=== PATIENT | female | born 1990 | race Caucasian/White ===

== ENCOUNTER 2016-11-01 13:50 | Emergency (ER) | payer BC, OTHER ==
[~2016-11-01] VITALS: Ht 162.6 cm; Wt 80.3 kg
[~2016-11-01 13:50] MED LIST: CEPH-506 PO; CLOT15CR4 TP; DCS100C PO; DOCU100C37 PO; FAMO-106 PO; FERR325C PO; FRS325T PO; HYDR-3812 PO; HYDR-757 PO; IBP600T1 PO; IBUP-1773 PO; LNS30CCR PO; ONDN4T PO; OXYC-12 PO; PNV1CAPS13 PO; PREN-37 PO; PREN1TAB14 PO; PREN1TAB39 PO
--- OUTSIDE RECORDS SUMMARY | 2016-11-01 13:56 | XMS REPORT | Continuity of Care Document ---
Author Author [facility] Organization [facility] Address Unknown Phone Unavailable Care Team Providers Care Finisher Cold [place] Name Role Phone NICK HOOKS MD PCP Insurance Providers Payer Name Policy Number Subscriber Name Relationship DHARA [id number] Clara Fall Sandro Self / Same As Patient Advance Directives Directive Response Recorded Date/Time Advance Directives No 09/30/16 6:24am Health Care Power of Reference Data Expert No 09/30/16 6:24am Organ Donor No 09/30/16 6:24am Resuscitation Status Full Code 09/30/16 6:24am Problems Active Problems Medical Problem Onset Date Status Tinea corporis Unknown Acute Medications Current Home Medications Medication Dose Units Route Directions Days/Qty Instructions Start Date Ibuprofen 600 Mg 600 Mg Oral Every 6 Hours 30 10/01/16 Hydrocodone/Acetaminophen 1 Each 1-2 Tab Oral Every 4HRS as needed for Pain 30 10/01/16 Docusate Sodium 100 Mg 100 Mg Oral Twice A Day 60 10/01/16 Past Home Medications Medication Directions Ordered Status Vits W-Ca,Fe,Fa(<1MG) 1 Each Tablet, 1 Each Oral Daily 04/13/12 Discontinued Ibuprofen 600 Mg Tab, 600 Mg Oral Give Every 6 Hr On Schedule 06/15/12 Discontinued Oxycodone Hcl/Acetaminophen 1 Each Tablet, 1 - 2 Each Oral Q4-6HRS as needed 06/15/12 Discontinued Ferrous Sulfate 325 ( 65 )Mg Capsule.sa, 325 ( Oral Three Times A Day Discontinued Lansoprazole 30 Mg Cap, 1 Cap Oral Daily 01/24/13 Discontinued Vits W-Ca,Fe,Fa(<1MG) 1 Each Tablet, 1 Each Oral Daily 01/24/13 Discontinued Vits W-Ca,Fe,Fa(<1MG) 1 Each Tablet, 1 Each Oral Daily 01/24/13 Discontinued Ondansetron Hcl 4 Mg Tab, 1 Tab Oral Every 4HRS 01/24/13 Discontinued Famotidine 20 Mg Tablet, Mg Oral 08/08/13 Discontinued Pnv Comb.no58/Iron Bisgly/Fa 1 Each Capsule, 1 Each Oral Daily 09/09/13 Discontinued Docusate Sodium 100 Mg Cap, 100 Mg Oral Twice A Day as needed for Constipation 09/15/13 Discontinued Ferrous Sulfate 325 Mg Tab, 325 Mg Oral Twice A Day With Meals 09/15/13 Discontinued Ibuprofen 600 Mg Tab, 600 Mg Oral Every 6 Hours as needed for Pain 09/15/13 Discontinued Hydrocodone Bit/Acetaminophen 1 Each Tablet, 1 Ea Oral Every 6 Hours as needed for Mild Pain 09/15/13 Discontinued Vit/Iron Fumarate/Fa 1 Each Tablet, 1 Each Oral Daily 06/02/16 Discontinued Clotrimazole/Betamethasone Dip 15 Gm Cream..g., 1 Gm Topical Twice A Day 01/12 Discontinued Cephalexin 250 Mg Capsule, 250 Mg Oral Four Times Daily 08/20/16 Discontinued Social History Social History Problem Response Recorded Date/Time Alcohol Use Occasionally Uses 09/13/2013 6:32am Recreational Drug Use No 09/13/2013 6:32am Recent Foreign Travel No 09/13/2013 6:32am Recent Infectious Disease Exposure No 09/13/2013 6:32am Hospitalization with Isolation Denies 09/15/2013 1:45pm Sexually Transmitted Disease No 09/30/2016 6:24am HIV/AIDS No 09/30/2016 6:24am Smoking Status Never a Smoker 09/30/2016 6:25am Recent Hopitalizations No 09/30/2016 6:24am Sexually Transmitted Disease No 09/30/2016 6:24am Hospitalization with Isolation Denies 09/15/2013 1:45pm Query Response Start Date Stop Date Smoking Status Never a Smoker Hospital Discharge Instructions Patient Instructions Physician Instructions New, Converted or Re-Newed RX: RX on Chart (and transmitted to pharmacy) Additional Follow Up: Yes Orders/Referrals 7-[address] Mars [address] Mars Activity: Activity as Tolerated Driving Instructions: No Driving for 24 Hours (or while on narcotic pain med ications) NO SMOKING: NO SMOKING Nothing Inside Vagina: No Douching, No [place], No Tampons Other Activity no lifting > 10lb, no strenuous activity until cleared by Dr. Mars Discharge Diet: No Restrictions Symptoms to Report to DrMana: Bleeding Excessive, Pain Increased, Fever Over 101 Degrees F, Pain/Pressure in Chest, Vaginal Bleeding Increase, Dizziness/Fainting, Nausea/Vomiting, Shortness of Breath For Any Problems or Questions: Contact Your Physician Infection Signs and Symptoms: Increased Redness, Foul Odor of Wound, Increased Drainage Operative Area Clean and Dry: Keep Incision Clean/Dry Stitches/[place]/Dermabond: Care of Stitches Bathing Instructions: Shower Plan of Care Discharge Date 10/02/16 1:15pm Disposition 01 HOME, SELF-CARE Instructions/Education Provided SECTION DISCHARGE [facility] Nonbreastfeeding Woman Forms Provided PDI Prescriptions See Medication Section Referrals NAMRATA MARS DO (Unspecified) - Address: [address] [place] [address] [place] [address] [phone] Reason(s) for Referral: CALL FOR AN APPOINTMENT TO SEE DR. MARS IN 7-10 DAYS FOR INCISION CHECK. CALL BEFORE IF HAVING ANY PROBLEMS OR QUESTIONS. SCHEDULE A [address] MARS. Care Plan and Goals See Discharge Instructions Section Functional Status Query Response Date Recorded Patient Orientation Person Place Time Situation Normal For Age October 02, 2016 1:54pm Allergies, Adverse Reactions, Alerts No known allergies. Immunizations Name Given Type DTaP-Tetanus, Dipth, Pertuss P/F (Boostrix) 10/01/16 Administered FLU TRIvalent 5 years - Adult 10/01/16 Administered Vital Signs Acute Vital Signs Vital Response Date/Time Temperature (Fahrenheit) 97.9 degrees F (97.6 - 99.5) 10/02/2016 1:15pm Temperature (Calculated Celsius) 36.35750 degrees C (36.4 - 37.5) 10/02/2016 9:00am Temperature Source Tympanic 10/02/2016 1:15pm Pulse Rate (adult) 106 bpm (60 - 90) 10/02/2016 1:15pm Respiratory Rate 18 bpm (12 - 24) 10/02/2016 1:15pm O2 Sat by Pulse Oximetry 98 % (88 - 100) 10/02/2016 1:15pm Blood Pressure 120/79 mm Hg 10/02/2016 1:15pm Blood Pressure Mean 93 mm Hg 10/02/2016 9:00am Pain Numeric Pain Scale 2 10/02/2016 1:15pm Height (Feet) 5 feet 09/30/2016 6:00am Height (Inches) 4.00 inches 09/30/2016 6:00am Height (Calculated Centimeters) 162.356195 cm 09/30/2016 6:00am Weight (Pounds) 202 pounds 09/30/2016 6:00am Weight (Ounces) 0.4 oz 09/30/2016 6:00am Weight (Calculated Grams) 28389.00 gm 09/30/2016 6:00am Weight (Calculated Kilograms) 91.907662 kilograms 09/30/2016 6:00am Calculated BMI 34.7 09/30/2016 6:00am Results Laboratory Results Test Name Result Units Flags Reference Collection Date/Time Result Date/ Time Comments White Blood Count 13.0 10^3/uL H 4.3-11.0 10/01/2016 6:58am 10/01/2016 7: 29am Red Blood Count 3.69 10^6/uL L 4.35-5.85 10/01/2016 6:58am 10/01/2016 7: 29am Hemoglobin 10.6 G/DL L 11.5-16.0 10/01/2016 6:58am 10/01/2016 7:29am Hematocrit 32 % L 35-52 10/01/2016 6:58am 10/01/2016 7:29am Mean Corpuscular Volume 88 FL 80-99 10/01/2016 6:58am 10/01/2016 7: 29am Mean Corpuscular Hemoglobin 29 PG 25-34 10/01/2016 6:58am 10/01/2016 7: 29am Mean Corpuscular Hemoglobin Concent 33 G/DL 32-36 10/01/2016 6:58am 12/2015 7:29am Red Cell Distribution Width 12.9 % 10.0-14.5 10/01/2016 6:58am 2015 7:29am Platelet Count 211 10^3/uL 130-400 10/01/2016 6:58am 10/01/2016 7:29am Mean Platelet Volume 10.4 FL 7.4-10.4 10/01/2016 6:58am 10/01/2016 7: 29am Neutrophils (%) (Auto) 80 % H 42-75 10/01/2016 6:58am 10/01/2016 7:29am Lymphocytes (%) (Auto) 10 % L 12-44 10/01/2016 6:58am 10/01/2016 7:29am Monocytes (%) (Auto) 8 % 0-12 10/01/2016 6:58am 10/01/2016 7:29am Eosinophils (%) (Auto) 2 % 0-10 10/01/2016 6:58am 10/01/2016 7:29am Basophils (%) (Auto) 0 % 0-10 10/01/2016 6:58am 10/01/2016 7:29am Neutrophils # (Auto) 10.4 X 10^3 H 1.8-7.8 10/01/2016 6:58am 10/01/2016 7 :29am Lymphocytes # (Auto) 1.3 X 10^3 1.0-4.0 10/01/2016 6:58am 10/01/2016 7: 29am Monocytes # (Auto) 1.0 X 10^3 0.0-1.0 10/01/2016 6:58am 10/01/2016 7: 29am Eosinophils # (Auto) 0.3 10^3/uL 0.0-0.3 10/01/2016 6:58am 10/01/2016 7 :29am Basophils # (Auto) 0.0 10^3/uL 0.0-0.1 10/01/2016 6:58am 10/01/2016 7: 29am Urine Color YELLOW 09/30/2016 6:20am 09/30/2016 6:50am Urine Clarity CLEAR 09/30/2016 6:20am 09/30/2016 6:50am Urine pH 6 5-9 09/30/2016 6:20am 09/30/2016 6:50am Urine Specific [place] 1.020 1.016-1.022 09/30/2016 6:20am 2015 6:50am Urine Protein NEGATIVE NEGATIVE 09/30/2016 6:20am 09/30/2016 6:50am Urine Glucose (UA) NEGATIVE NEGATIVE 09/30/2016 6:20am 09/30/2016 6: 50am Urine RBC (Auto) NEGATIVE NEGATIVE 09/30/2016 6:20am 09/30/2016 6: 50am Urine Ketones NEGATIVE NEGATIVE 09/30/2016 6:20am 09/30/2016 6:50am Urine Nitrite NEGATIVE NEGATIVE 09/30/2016 6:20am 09/30/2016 6:50am Urine Bilirubin NEGATIVE NEGATIVE 09/30/2016 6:20am 09/30/2016 6: 50am Urine Urobilinogen NORMAL MG/DL NORMAL 09/30/2016 6:20am 09/30/2016 6: 50am Urine Leukocyte Esterase NEGATIVE NEGATIVE 09/30/2016 6:20am 2015 6:50am Urine RBC NONE /HPF 09/30/2016 6:20am 09/30/2016 6:50am Urine WBC NONE /HPF 09/30/2016 6:20am 09/30/2016 6:50am Urine Bacteria FEW /HPF * 09/30/2016 6:20am 09/30/2016 6:50am Urine Squamous Epithelial Cells 25-50 /HPF * 09/30/2016 6:20am 2015 6:50am Urine Crystals NONE /LPF 09/30/2016 6:20am 09/30/2016 6:50am Urine Casts NONE /LPF 09/30/2016 6:20am 09/30/2016 6:50am Urine Mucus NEGATIVE /LPF 09/30/2016 6:20am 09/30/2016 6:50am Urine Culture Indicated NO 09/30/2016 6:20am 09/30/2016 6:50am Pending Microbiology Results Procedure Source Collection Date/Time Procedures Procedure Status Date Provider(s) section Completed 09/30/16 NAMRATA MARS DO Tracing only of electrocardiogram Active 09/30/16 PHIL MURO CRNA Encounters Encounter Location Arrival/Admit Date Discharge/Depart Date Attending Provider Discharged Inpatient [facility] 09/30/16 6:04am 1:15pm NAMRATA MARS DO Departed Clinic [facility] 11/28/16 10:43am 09/26/16 11: 14am NAMRATA MARS DO Departed Clinic [facility] 09/02/16 11:54am 09/02/16 12: 41pm HO RIVERA DO
[2016-11-01] MEDS ORDERED: NORG1TAB79 PO (14:47)
--- NOTE | 2016-11-01 14:56 | ED GU-Female ---
General Chief Complaint: -Female Stated Complaint: VAG BLEEDING Nursing Triage Note: PT CO OF INCREASED VAGINAL BLEEDING, PT HAS ON 09/30/16. STATES STARTED BC 11 DAYS AGO, STATES BLEEDING HAS NOT STOPPED SINCE DELIVERY. SENT TO ED BY DR MARS'S OFFICE Nursing Sepsis Screen: No Definite Risk Source: patient Exam Limitations: no limitations History of Present Illness Time seen by provider: 14:56 Initial Comments 25-year-old female patient presents to the emergency department complains of increased vaginal bleeding. Patient states she underwent section on . Also states she started control 11 days ago. Reports bleeding after the improved to just spotting. Increased bleeding last 1-2 days. States she has used 4 pads today. Patient states she was sent to the ED by Dr. Mars's office. Timing/Duration: other (1-2 days worse) Severity/Quality: cramping Location: suprapubic Radiation: none Activities at Onset: none Prior Genitourinary Problems: none Sexual [place] History: not active Modifying Factors: Worsens With Other (denies modifying factors.) Allergies and Home Medications Allergies Coded Allergies: No Known Drug Allergies (Unverified , 09/26/16) Home Medications Norgestrel-Ethinyl Estradiol 1 Each Tablet 1 EACH PO DAILY (Reported) Constitutional: No chills, No diaphoresis, No dizziness, No fever, No malaise Respiratory: no symptoms reported Cardiovascular: no symptoms reported Gastrointestinal: see HPI abdominal pain (suprapubic cramping)No constipation , No diarrhea, No loss of appetite, No nausea, No vomiting Genitourinary: see HPIdenies burning, discharge (vaginal bleeding. Denies yellow or green vaginal discharge.)denies dysuria, denies frequency, denies flank pain, pain (suprapubic abdominal cramping) : No Musculoskeletal: no symptoms reported Skin: no symptoms reported Psychiatric/Neurological: No Symptoms Reported Hematologic/Lymphatic: No Symptoms Reported All Other Systemes Reviewed Negative Unless Noted: Yes (Negative excepted noted.) Past Lnnnzbt-Nsdizk-Prpyyj Hx Patient Social History Alcohol Use: Denies Use Recreational Drug Use: No Smoking Status: Never a Smoker Recent Foreign Travel: No Contact w/Someone Who Travel: No Recent Infectious Disease Expo: No Recent Hopitalizations: No Physical Abuse Screen: No Sexual Abuse: No Immunizations Up To Date Tetanus Booster (TDap): Less than 5yrs PED Vaccines UTD: No Date of Influenza Vaccine: Sep 14, 2013 Seasonal Allergies Seasonal Allergies: No Surgeries HX Surgeries: Yes Surgeries: Section Respiratory Hx Respiratory Disorders: No Cardiovascular Hx Cardiac Disorders: No Neurological Hx Neurological Disorders: No Reproductive System : No (DELIVERY 09/30/16) Hx Reproductive Disorders: No Sexually Transmitted Disease: No HIV/AIDS: No Female Reproductive Disorders: Denies Genitourinary Hx Genitourinary Disorders: Yes Genitourinary Disorders: UTI-Chronic Gastrointestinal Hx Gastrointestinal Disorders: Yes (DURING ) Gastrointestinal Disorders: Gastroesophageal Reflux Musculoskeletal Hx Musculoskeletal Disorders: No Endocrine Hx Endocrine Disorders: No HEENT HX ENT Disorders: No Cancer Hx Cancer: No Psychosocial Hx Psychiatric Problems: No Integumentary HX Skin/Integumentary Disorder: No Blood Transfusions Hx Blood Disorders: No Adverse Reaction to a Blood Tr: No (N/A) Reviewed Nursing Assessment Reviewed/Agree w Nursing PMH: Yes Family Medical History Significant Family History: Heart Disease Family Medial History: Family history: Asthma 09 BROTHER No Family History of: Abdominal aortic aneurysm Elcho's disease Alcoholism Aphasia Cancer Cancer of colon Cataract Chest pain Congenital heart disease Congestive heart failure Cystic fibrosis Dementia Dysphagia Family history: Allergy Family history: Arthritis Family history: Breast disease Family history: Cardiovascular disease Family history: Coronary thrombosis Family history: Diabetes mellitus Family history: Gastrointestinal disease Family history: Glaucoma Family history: Hypertension Family history: Osteoporosis Family history: Thyroid disorder Headache Hearing loss Heart disease Hereditary disease History of - anemia History of - disorder History of - respiratory disease History of drug abuse Human immunodeficiency virus (HIV) seropositivity Hypercholesterolemia Infertile Kidney disease Malignant neoplasm of lung Myocardial infarction Parkinson's disease Prostate cancer Psychotic disorder Seizure disorder Stroke Tuberculosis Visual impairment Physical Exam Vital Signs Capillary Refill : Less Than 3 Seconds General Appearance: WD/WN no apparent distress HEENT: PERRL/EOMI pharynx normal Neck: supple normal inspection Cardiovascular: normal peripheral pulses regular rate, rhythm no edema no murmur Respiratory: lungs clear normal breath sounds no respiratory distress Gastrointestinal: normal bowel sounds non tender (unable to reproduce suprapubic tenderness) softNo distended Back: normal inspection no CVA tenderness Extremities: no pedal edema normal capillary refill Neurologic/Psychiatric: alert normal mood/affect oriented x 3 Skin: normal color warm/dry Progress/Results/Core Measures Results/Orders Lab Results My Orders Vital Signs/I&O Blood Pressure Mean: 88 Departure Communication Progress Notes All laboratory findings discussed with the patient. Patient instructed to follow-up as an outpatient with Dr. Mars for recheck and possible need for outpatient ultrasound.. She is to call her office for appointment time. All return precautions were discussed with the patient as described in the discharge instructions of this report. Patient voices understanding and agrees with the treatment plan. Patient case discussed with Gamaliel Aaron MD. He agrees with the plan of care. Impression Impression: Primary Impression: Menorrhagia Disposition: 01 HOME, SELF-CARE Condition: Improved Departure-Patient Inst. Decision time for Depature: 16:07 Referrals: NICK HOOKS MD (PCP/Family) Primary Care Physician NAMRATA MARS DO Patient Instructions: IRREGULAR VAGINAL BLEEDING Add. Discharge Instructions: All discharge instructions reviewed with patient and/or family. Voiced understanding. Take usual medications as prescribed. Tylenol and motrin for pain if needed. Follow-up with Dr. Mars for recheck and further evaluation. Return to the emergency department for worsened pain, fever, vomiting, diarrhea , vaginal bleeding with greater than 2 pads per hour for 2 hours, or any other concerns. PEEWEE ROMERO Nov 01, 2016 14:56 Lymphocytes # (Auto) 1.5 1.0-4.0 X 10^3 Lymphocytes (%) (Auto) 19 12-44 % Mean Corpuscular Hemoglobin 28 25-34 PG Mean Corpuscular Hemoglobin Concent 33 32-36 G/DL Mean Corpuscular Volume 85 80-99 FL Mean Platelet Volume 10.1 7.4-10.4 FL Monocytes # (Auto) 0.5 0.0-1.0 X 10^3 Monocytes (%) (Auto) 6 0-12 % Neutrophils # (Auto) 5.5 1.8-7.8 X 10^3 Neutrophils (%) (Auto) 71 42-75 % Platelet Count 294 130-400 10^3/uL Potassium Level 3.8 3.6-5.0 MMOL/L Red Blood Count 4.38 4.35-5.85 10^6/uL Red Cell Distribution Width 13.0 10.0-14.5 % Sodium Level 140 135-145 MMOL/L TSH [place] Testing 1.60 0.35-4.94 UIU/ML Total Bilirubin 0.3 0.1-1.0 MG/DL Total Protein 7.1 6.4-8.2 G/DL White Blood Count 7.7 4.3-11.0 10^3/uL Urine Bacteria FEW H /HPF Urine Bilirubin NEGATIVE NEGATIVE Urine Casts NONE /LPF Urine Clarity SLIGHTLY CLOUDY Urine Color YELLOW Urine Crystals NONE /LPF Urine Culture Indicated NO Urine Glucose (UA) NEGATIVE NEGATIVE Urine Ketones NEGATIVE NEGATIVE Urine Leukocyte Esterase 1+ H NEGATIVE Urine Mucus MODERATE H /LPF Urine Nitrite NEGATIVE NEGATIVE Urine Protein 2+ H NEGATIVE Urine RBC TNTC H /HPF Urine RBC (Auto) 5+ H NEGATIVE Urine Specific [place] 1.015 L 1.016-1.022 Urine Urobilinogen 1 NORMAL MG/DL Urine WBC 0-2 /HPF Urine pH 6.5 5-9 My Orders Orders-PEEWEE ROMERO Cbc With Automated Diff (11/01/16 14:56) Comprehensive Metabolic Panel (11/01/16 14:56) Thyroid Analyzer (11/01/16 14:56) Ua Culture If Indicated (11/01/16 14:56) Urine Bedside (11/01/16 14:56) Acetaminophen Tablet (Tylenol Tablet) (11/01/16 15:26) Vital Signs/I&O Vital Sign - Last 12Hours 11/01/16 14:25 Temp 98.1 Pulse 85 Resp 18 B/P 122/71 Pulse Ox 99 Blood Pressure Mean: 88 Departure Impression Impression: Primary Impression: Menorrhagia Disposition: 01 HOME, SELF-CARE Condition: Improved Departure-Patient Inst. Decision time for Depature: 16:07 Referrals: NICK HOOKS MD (PCP/Family) Primary Care Physician NAMRATA MARS DO Patient Instructions: IRREGULAR VAGINAL BLEEDING Add. Discharge Instructions: All discharge instructions reviewed with patient and/or family. Voiced understanding. Take usual medications as prescribed. Tylenol and motrin for pain if needed. Follow-up with Dr. Mars for recheck and further evaluation. Return to the emergency department for worsened pain, fever, vomiting, diarrhea , vaginal bleeding with greater than 2 pads per hour for 2 hours, or any other concerns. PEEWEE ROMERO Nov 01, 2016 14:56
[2016-11-01 15:15] LABS: BASOPHILS % (AUTO) 0 % (0-10); EOSINOPHILS # (AUTO) 0.3 10^3/uL (0.0-0.3); EOSINOPHILS % (AUTO) 4 % (0-10); LYMPHOCYTES # (AUTO) 1.5 X 10^3 (1.0-4.0); LYMPHOCYTES % (AUTO) 19 % (12-44); MEAN CORPUSCULAR HEMOGLOBIN 28 PG (25-34); MEAN CORPUSCULAR HGB CONC 33 G/DL (32-36); MEAN CORPUSCULAR VOLUME 85 FL (80-99); MEAN PLATELET VOLUME 10.1 FL (7.4-10.4); MONOCYTES # (AUTO) 0.5 X 10^3 (0.0-1.0); MONOCYTES % (AUTO) 6 % (0-12); NEUTROPHILS # (AUTO) 5.5 X 10^3 (1.8-7.8); NEUTROPHILS % (AUTO) 71 % (42-75); PLATELET COUNT 294 10^3/uL (130-400); RED BLOOD COUNT 4.38 10^6/uL (4.35-5.85); WHITE BLOOD COUNT 7.7 10^3/uL (4.3-11.0)
[2016-11-01 15:22] LABS: BILIRUBIN,URINE NEGATIVE (NEGATIVE); KETONES,URINE NEGATIVE (NEGATIVE); LEUKOCYTE ESTERASE ,URINE 1+ (NEGATIVE); NITRITE,URINE NEGATIVE (NEGATIVE); PH,URINE 6.5 (5-9); PROTEIN,URINE 2+ (NEGATIVE); UROBILINOGEN,URINE 1 MG/DL (NORMAL)
[2016-11-01] MEDS ORDERED: ACETAMINOPHEN 500 MG TAB (TYLENOL) PO STA (15:26)
[2016-11-01 15:38] LABS: ALANINE AMINOTRANSFERASE 127 U/L (0-55); ANION GAP 10 MMOL/L (5-14); ASPARTATE AMINO TRANSFERASE 62 U/L (5-34); BILIRUBIN,TOTAL 0.3 MG/DL (0.1-1.0); BLOOD UREA NITROGEN 8 MG/DL (7-18); BUN/CREATININE RATIO 11; CARBON DIOXIDE 21 MMOL/L (21-32); CHLORIDE 109 MMOL/L (98-107); CREATININE SERUM 0.73 MG/DL (0.60-1.30); GFR ESTIMATED > 60; GLUCOSE 82 MG/DL (70-105); POTASSIUM 3.8 MMOL/L (3.6-5.0); SODIUM 140 MMOL/L (135-145); TOTAL PROTEIN 7.1 G/DL (6.4-8.2)
[2016-11-01 15:54] LABS: WBC,URINE 0-2 /HPF
[2016-11-01 16:22] VITALS: BP 122/71
== END 2016-11-01 16:22 | disposition home or self-care (01) ==
LOC: EDUNIT# 13:50 → ER 13:53
DX: N92.0 Excessive and frequent menstruation with regular cycle (principal)
CPT/HCPCS: 36415; 80053; 81000; 84443; 84703; 85025; 99283

== ENCOUNTER 2020-01-12 05:40 | Emergency (ER) | payer SELFPAY ==
[~2020-01-12] VITALS: Ht 162.5 cm; Wt 75.0 kg
[~2020-01-12 05:40] MED LIST changes: +ACHD5005 PO; -HYDR-3812 PO; +NORG1TAB79 PO
--- NOTE | 2020-01-12 06:14 | ED GU-Female ---
General Chief Complaint: ENGINEERING INSPECTOR Stated Complaint: VAGINAL BLEEDING Nursing Triage Note: PATIENT STATES THAT SHE HAD 4 POSITIVE TESTS. DATE OF LAST PERIOD WAS 12/10/19. SHE BEGAN SPOTTING YESTERDAY (01/11/20) AND THIS AM AT 0500 EXPERIENCED CRAMPING AND PASSED A CLOT THAT SHE DESCRIBES "ABOUT THE SIZE OF A HALF DOLLAR". SHE HAD NOT SEEN A DOCTOR YET REGARDING . Nursing Sepsis Screen: No Definite Risk Source: patient Exam Limitations: no limitations History of Present Illness Date Seen by Provider: Jan 12, 2020 Time Seen by Provider: 05:51 Initial Comments Patient presents to ER with her significant other and chief complaint for the past week she's been having some positive urine test and today she said she been having some backache and low pelvic pain as well as passed some blood clots and is afraid she is having a miscarriage. She is a with previous history of O- blood type. She's not having any dysuria nausea, shortness of breath, chest pain. She rates her pain as a 6 out of 10 and has not taken anything for it. She denies wanting anything for it. No other abdominal surgeries except for 3 previous C-sections. 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 Allergies and Home Medications Allergies Coded Allergies: No Known Drug Allergies (Unverified , 09/26/16) Home Medications Norgestrel-Ethinyl Estradiol 1 Each Tablet, 1 EACH PO DAILY, (Reported) Patient Home Medication List Home Medication List Reviewed: Yes Review of Systems Review of Systems Constitutional: No chills, No diaphoresis EENTM: No ear discharge, No ear pain Respiratory: No cough, No short of breath Cardiovascular: No chest pain, No palpitations Gastrointestinal: abdominal pain; No nausea, No vomiting Genitourinary: denies burning, denies discharge Musculoskeletal: No back pain, No joint pain Skin: No pruritus, No rash Past Lwmxqzz-Sonehq-Mwjnnk Hx Patient Social History Alcohol Use: Denies Use Recreational Drug Use: No Smoking Status: Never a Smoker Recent Foreign Travel: No Contact w/Someone Who Travel: No Recent Infectious Disease Expo: No Recent Hopitalizations: No Immunizations Up To Date Tetanus Booster (TDap): Less than 5yrs PED Vaccines UTD: No Date of Influenza Vaccine: Sep 14, 2013 Seasonal Allergies Seasonal Allergies: No Past Medical History Section Last Menstrual Period: Dec 10, 2019 Hx : 3 Hx Para: 3 Hx Total # of Abortions (Sp): 0 Reproductive Disorders: No Female Reproductive Disorders: Denies Sexually Transmitted Disease: No HIV/AIDS: No UTI-Chronic Gastroesophageal Reflux Adverse Reaction/Blood Tranf: No (N/A) Family Medical History Family history: Asthma 09 BROTHER No Family History of: Abdominal aortic aneurysm Hakan's disease Alcoholism Aphasia Cancer Cancer of colon Cataract Chest pain Congenital heart disease Congestive heart failure Cystic fibrosis Dementia Dysphagia Family history: Allergy Family history: Arthritis Family history: Breast disease Family history: Cardiovascular disease Family history: Coronary thrombosis Family history: Diabetes mellitus Family history: Gastrointestinal disease Family history: Glaucoma Family history: Hypertension Family history: Osteoporosis Family history: Thyroid disorder Headache Hearing loss Heart disease Hereditary disease History of - anemia History of - disorder History of - respiratory disease History of drug abuse Human immunodeficiency virus (HIV) seropositivity Hypercholesterolemia Infertile Kidney disease Malignant neoplasm of lung Myocardial infarction Parkinson's disease Prostate cancer Psychotic disorder Seizure disorder Stroke Tuberculosis Visual impairment Heart Disease Physical Exam Vital Signs Vital Signs - First Documented 01/12/20 05:51 Temp 36.6 Pulse 96 Resp 16 B/P (MAP) 133/67 (89) Capillary Refill : Less Than 3 Seconds Height, Weight, BMI Height: 5'4" Weight: 177lbs. 0.4oz. [id number]; 28.00 BMI Method:Stated General Appearance: WD/WN, no apparent distress HEENT: PERRL/EOMI, pharynx normal Cardiovascular: normal peripheral pulses, regular rate, rhythm Respiratory: no respiratory distress, no accessory muscle use Gastrointestinal: normal bowel sounds, soft, tenderness (Suprapubic) Extremities: normal range of motion, normal inspection, normal capillary refill Neurologic/Psychiatric: alert, normal mood/affect, oriented x 3 Skin: normal color, warm/dry Progress/Results/Core Measures Suspected Sepsis Recent Fever Within 48 Hours: No Infection Criteria Present: None New/Unexplained Altered Menta: No Sepsis Screen: No Definite Risk SIRS Temperature: Pulse: 96 Respiratory Rate: 16 Blood Pressure 133 /67 Mean: 89 Results/Orders Lab Results Laboratory Tests Test 01/12/20 06:15 Range/Units Urine Color YELLOW Urine Clarity SL CLOUDY Urine pH 5.5 5-9 Urine Specific [place] >=1.030 1.016-1.022 Urine Protein NEGATIVE NEGATIVE Urine Glucose (UA) NEGATIVE NEGATIVE Urine Ketones NEGATIVE NEGATIVE Urine Nitrite NEGATIVE NEGATIVE Urine Bilirubin NEGATIVE NEGATIVE Urine Urobilinogen 0.2 < = 1.0 MG/DL Urine Leukocyte Esterase TRACE H NEGATIVE Urine RBC (Auto) 2+ H NEGATIVE Urine RBC NONE /HPF Urine WBC 25-50 H /HPF Urine Squamous Epithelial Cells 10-25 H /HPF Urine Crystals NONE /LPF Urine Bacteria TRACE /HPF Urine Casts NONE /LPF Urine Mucus MODERATE H /LPF Urine Culture Indicated YES Vital Signs/I&O 01/12/20 05:51 Temp 36.6 Pulse 96 Resp 16 B/P (MAP) 133/67 (89) Capillary Refill : Less Than 3 Seconds Blood Pressure Mean: 89 Progress Note #1: Time: 06:14 Progress Note Plan to get a urinalysis, urine test and if positive treat her with RhoGAM for potential miscarriage. We would then get a quantitative. At this point she does not appear to be any acute distress and an ectopic seems less likely. We can set her up for ultrasound tomorrow morning during business hours. We have given her specific return precautions. Progress Note #2: Time: 06:34 Progress Note Urinalysis appears to show contamination without any significant red blood cells. We'll stick her on some Macrobid which should cover her in case the culture comes back positive. Departure Impression Primary Impression: Urinary tract infection Qualified Codes: N30.00 - Acute cystitis without hematuria Additional Impression: Miscarriage Disposition: 01 HOME, SELF-CARE Condition: Stable Departure-Patient Inst. Decision time for Depature: 06:35 Referrals: NO,LOCAL PHYSICIAN (PCP/Family) Primary Care Physician Patient Instructions: Dealing With Miscarriage, Urinary Tract Infection, Adult (DC) Add. Discharge Instructions: Drink plenty of fluids. Macrobid one capsule twice a day for the next 10 days. If you have severe pain that is not treated with Tylenol 1000 mg every 8 hours and/or ibuprofen 800 mg every 8 hours then you should return to the ER. Tomorrow you may call and set up an ultrasound outpatient and have your results sent to Dr. Mcduffie. Call Dr. Mcduffie for follow-up appointment to review results. All discharge instructions reviewed with patient and/or family. Voiced understanding. Work/School Note: Work Release Form Date Seen in the Emergency Department: Jan 12, 2020 Return to Work: Jan 13, 2020 Restrictions: No Restrictions MELODY,AIMEE J Jan 12, 2020 06:14
[2020-01-12 06:21] LABS: BILIRUBIN,URINE NEGATIVE (NEGATIVE); CLARITY,URINE SL CLOUDY; COLOR,URINE YELLOW; GLUCOSE, URINE (UA) NEGATIVE (NEGATIVE); KETONES,URINE NEGATIVE (NEGATIVE); LEUKOCYTE ESTERASE ,URINE TRACE (NEGATIVE); NITRITE,URINE NEGATIVE (NEGATIVE); PH,URINE 5.5 (5-9); PROTEIN,URINE NEGATIVE (NEGATIVE)
[2020-01-12 06:32] LABS: BACTERIA,URINE TRACE /HPF; WBC,URINE 25-50 /HPF
--- NOTE | 2020-01-12 07:01 | NUR ---
Outpt order faxed.
[2020-01-12] MEDS ORDERED: NITR-65 PO (07:20)
--- NOTE | 2020-01-12 07:24 | NUR ---
Rhophylac IM injection given in R ventrogluteal. Lot [id number], exp date 04/04/2022.
[2020-01-12 07:40] VITALS: BP 139/72
== END 2020-01-12 07:40 | disposition home or self-care (01) ==
LOC: EDUNIT# 05:40 → ER 05:42
DX: O03.9 Complete or unspecified spontaneous abortion without complication (principal); N39.0 Urinary tract infection, site not specified; Z79.52 Long term (current) use of systemic steroids
CPT/HCPCS: 81000; 84703; 87088; 99284

== ENCOUNTER 2021-10-19 12:40 | Emergency (ER) | payer MEDICAID ==
[~2021-10-19] VITALS: Ht 162.6 cm; Wt 77.0 kg
[~2021-10-19 12:40] MED LIST changes: +NITR-65 PO
--- NOTE | 2021-10-19 13:28 | ED EENT ---
History of Present Illness General Chief Complaint: Oral/Throat Problems Stated Complaint: DIFFICULTY SWALLOWING Nursing Triage Note: PT AMB TO FT 1 W REPORTS OF DIFFICULTY SWALLOWING X 2 MONTHS. PT REPORTS SHE WAS EVALUATED BY [facility] AND THEY TOLD HER IT WAS POSS THYROID PROBLEMS, NO FOLLOW UP BY PT. PT A&OX4, DENIES PAIN. Source: patient Exam Limitations: no limitations (DEB ARREOLA APRN) History of Present Illness Date Seen by Provider: Oct 19, 2021 Time Seen by Provider: 13:25 Initial Comments To ER with reports of difficulty swallowing for 2 months. Was seen at [facility] and told her it might be thyroid. Not sure what the problem is she states it is constant. She is able to eat and swallow without discomfort but she feels like mucus is pooling in her throat. She does sometimes get acid reflux. Timing/Duration: this morning Severity: moderate Prearrival Treatment: no prearrival treatment Associated Symptoms: cough (DEB ARREOLA APRN) Allergies and Home Medications Allergies Coded Allergies: No Known Drug Allergies (Unverified , 09/26/16) Patient Home Medication List Home Medication List Reviewed: Yes (DEB ARREOLA APRN) Nitrofurantoin Monohyd/M-Cryst (Macrobid 100 mg Capsule) 100 Mg Capsule, 1 TAB PO BID Prescribed by: AIMEE OLIVER on 01/12/20 0720 Norgestrel-Ethinyl Estradiol (Elinest-28 Tablet) 1 Each Tablet, 1 EACH PO DAILY, (Reported) Entered as Reported by: AGLEN WEINER on 11/01/16 1447 Pantoprazole Sodium (Protonix) 40 Mg Tablet.dr, 40 MG PO DAILY Prescribed by: DEB ARREOLA on 10/19/21 1345 Review of Systems Review of Systems Constitutional: see HPI Eyes: No Symptoms Reported Ears: No Symptoms Reported Nose: no symptoms reported Mouth: no symptoms reported Throat: no symptoms reported Respiratory: no symptoms reported Cardiovascular: no symptoms reported Musculoskeletal: no symptoms reported Skin: no symptoms reported Neurological: No Symptoms Reported Hematologic/Lymphatic: No Symptoms Reported Immunological/Allergic: no symptoms reported (DEB ARREOLA APRN) Past Jfpbcnr-Bsytpe-Uwybxc Hx Patient Social History Tobacco Use?: No Use of E-Cig and/or Vaping dev: No Substance use?: No Alcohol Use?: Yes Alcohol Frequency: Rarely (DEB ARREOLA APRN) Immunizations Up To Date Tetanus Booster (TDap): Less than 5yrs PED Vaccines UTD: No First/Initial COVID19 Vaccinat: NONE Second COVID19 Vaccination Clive: NONE Third COVID19 Vaccination Date: NONE COVID19 Vaccine Cartography Teacher: NONE (DEB ARREOLA APRN) Seasonal Allergies Seasonal Allergies: No (DEB ARREOLA APRN) Past Medical History Surgeries: Yes Section Respiratory: No Cardiac: No Neurological: No Reproductive Disorders: No Female Reproductive Disorders: Denies Sexually Transmitted Disease: No HIV/AIDS: No UTI-Chronic Gastrointestinal: Yes (DURING ) Gastroesophageal Reflux Musculoskeletal: No Endocrine: No Cancer: No Psychosocial: No Integumentary: No Blood Disorders: No Adverse Reaction/Blood Tranf: No (N/A) (DEB ARREOLA APRN) Family Medical History Family history: Asthma 09 BROTHER No Family History of: Abdominal aortic aneurysm [place]ron's disease Alcoholism Aphasia Cancer Cancer of colon Cataract Chest pain Congenital heart disease Congestive heart failure Cystic fibrosis Dementia Dysphagia Family history: Allergy Family history: Arthritis Family history: Breast disease Family history: Cardiovascular disease Family history: Coronary thrombosis Family history: Diabetes mellitus Family history: Gastrointestinal disease Family history: Glaucoma Family history: Hypertension Family history: Osteoporosis Family history: Thyroid disorder Headache Hearing loss Heart disease Hereditary disease History of - anemia History of - disorder History of - respiratory disease History of drug abuse Human immunodeficiency virus (HIV) seropositivity Hypercholesterolemia Infertile Kidney disease Malignant neoplasm of lung Myocardial infarction Parkinson's disease Prostate cancer Psychotic disorder Seizure disorder Stroke Tuberculosis Visual impairment Heart Disease (DEB ARREOLA APRN) Physical Exam Vital Signs Vital Signs - First Documented 10/19/21 13:15 Temp 36.8 Pulse 103 Resp 20 B/P (MAP) 130/74 (92) Pulse Ox 99 O2 Delivery Room Air (GREGORIA PARR MD) Height, Weight, BMI Height: 5'4" Weight: 177lbs. 0.4oz. [id number]; 29.00 BMI Method:Stated General Appearance: WD/WN, no apparent distress Eyes: bilateral eye normal inspection, bilateral eye PERRL, bilateral eye EOMI Ears: bilateral ear auricle normal, bilateral ear canal normal, bilateral ear TM normal Neck: non-tender, full range of motion Respiratory: no respiratory distress, no accessory muscle use Gastrointestinal: normal bowel sounds, non tender Neurologic/Psychiatric: alert, normal mood/affect, oriented x 3 Skin: normal color, warm/dry (DEB ARREOLA APRN) Progress/Results/Core Measures Results/Orders Vital Signs/I&O 10/19/21 10/19/21 13:15 14:10 Temp 36.8 Pulse 103 102 Resp 20 20 B/P (MAP) 130/74 (92) 112/77 Pulse Ox 99 99 O2 Delivery Room Air Room Air (GREGORIA PARR MD) Blood Pressure Mean: 92 Departure Impression Primary Impression: Dysphagia Disposition: 01 HOME, SELF-CARE Condition: Stable Departure-Patient Inst. Decision time for Depature: 13:43 (DEB ARREOLA APRN) Referrals: MIRANDA RAMSEY BRETT D DO KIDO, TAKAAKI MD NO,LOCAL PHYSICIAN (PCP) Primary Care Physician Patient Instructions: Dysphagia Add. Discharge Instructions: 1. Follow-up with one of the surgeons listed to discuss getting an EGD or a scope of the throat. Return to ER for any concerns. Call one of them today to make an appointment to be seen sometime later this week or next week. All discharge instructions reviewed with patient and/or family. Voiced understanding. Scripts Pantoprazole Sodium (Protonix) 40 Mg Tablet. 40 MG PO DAILY, #30 TAB Prov: DEB ARREOLA APRN 10/19/21 ATTENDING PHYSICIAN NOTE: I was physically present as attending physician in the emergency department during the care of this patient, but I was not directly involved in the decision making or delivery of care for this patient. (GREGORIA PARR MD) DEB ARREOLA APRN Oct 19, 2021 13:27 GREGORIA PARR MD Oct 19, 2021 18:34
[2021-10-19] MEDS ORDERED: PANT40TA2 PO (13:45)
--- NOTE | 2021-10-19 13:59 | Diagnostic Imaging Report ---
PROCEDURE: CT neck soft tissue without contrast. TECHNIQUE: Multiple contiguous axial images were obtained through the neck without the use of intravenous contrast. Auto Exposure Controls were utilized during the CT exam to meet ALARA standards for radiation dose reduction. INDICATION: Dysphagia. COMPARISON: None available. FINDINGS: The airway is widely patent. There is no abnormal thickening of the epiglottis. No peritonsillar abscess or retropharyngeal fluid collection. Thyroid is normal in appearance without nodule. Submandibular gland is normal, and there are no features of sialolithiasis. Parotid glands are unremarkable. No cervical lymphadenopathy. Lung apices are clear. Cervical spine is normal. No hydrocephalus within the visualized aspects of the brain. Mastoid air cells are clear. IMPRESSION: 1. Widely patent airway without features of peritonsillar abscess or epiglottitis. 2. Normal appearance of the thyroid. 3. No cervical lymphadenopathy. Dictated by: Dictated on workstation # [id number]
[2021-10-19 14:10] VITALS: BP 112/77
== END 2021-10-19 14:10 | disposition home or self-care (01) ==
LOC: EDUNIT# 12:40 → ER 12:42
DX: R13.10 Dysphagia, unspecified (principal); K21.9 Gastro-esophageal reflux disease without esophagitis; Z79.899 Other long term (current) drug therapy
CPT/HCPCS: 70490

== ENCOUNTER 2021-11-02 00:03 | Emergency (ER) | payer MEDICAID ==
[~2021-11-02 00:03] MED LIST changes: +PANT40TA2 PO
== END 2021-11-02 00:14 | disposition left against medical advice (07) ==
LOC: EDUNIT# 00:03 → ER 00:07
DX: R06.02 Shortness of breath (principal); R07.9 Chest pain, unspecified

== ENCOUNTER 2021-11-08 11:54 | Emergency (ER) | payer MEDICAID ==
[~2021-11-08] VITALS: Ht 160 cm; Wt 77.1 kg
[2021-11-08 12:23] VITALS: BP 118/82
--- NOTE | 2021-11-08 12:31 | ED Abdominal Pain ---
General Stated Complaint: ABD PAIN Source of Information: Patient Exam Limitations: No Limitations History of Present Illness Date Seen by Provider: Nov 08, 2021 Time Seen by Provider: 12:30 Initial Comments Patient is a 30-year-old female who presents to the ED for lower abdominal pain, vomiting and diarrhea. Symptoms started last Monday after eating [employer]. She reports lower abdominal cramping with one episode of vomiting. Has been having several bouts of diarrhea since with yellowish-greenish stool. Denies of any dark tarry stool, bright red blood. She reports continuous lower and upper abdominal cramping. History of C-sections. She reports normal urination without any pain, vaginal bleeding. Last menstrual cycle was October 27. History of with no previous abdominal surgery. Patient has taken Pepto-Bismol and Tums without much improvement. Patient denies fever, chest pain, cough, shortness of breath, headache, dizziness. Allergies and Home Medications Allergies Coded Allergies: No Known Drug Allergies (Unverified , 09/26/16) Patient Home Medication List Home Medication List Reviewed: Yes Nitrofurantoin Monohyd/M-Cryst (Macrobid 100 mg Capsule) 100 Mg Capsule, 1 TAB PO BID Prescribed by: AIMEE OLIVER on 01/12/20 0720 Norgestrel-Ethinyl Estradiol (Elinest-28 Tablet) 1 Each Tablet, 1 EACH PO DAILY, (Reported) Entered as Reported by: GALEN WEINER on 11/01/16 1447 Ondansetron (Ondansetron Odt) 4 Mg Tab.rapdis, 4 MG PO Q4H PRN for NAUSEA-1ST LINE Prescribed by: RAMA PARSONS on 11/08/21 1357 Pantoprazole Sodium (Protonix) 40 Mg Tablet., 40 MG PO DAILY Prescribed by: DEB ARREOLA on 10/19/21 1345 Review of Systems Review of Systems Constitutional: No chills, No diaphoresis, No dizziness, No fever EENTM: No Ear Drainage, No Ear Pain, No Mouth Pain Respiratory: Denies SOA With Exertion, Denies SOA at Rest Cardiovascular: Denies Chest Pain, Denies Edema Gastrointestinal: Diarrhea, Nausea, Vomiting Genitourinary: Denies Burning, Denies Discharge, Denies Drainage, Denies Frequency Musculoskeletal: No back pain, No joint pain Skin: No change in color Psychiatric/Neurological: Denies Anxiety, Denies Depressed All Other Systems Reviewed Negative Unless Noted: Yes Past Bqhwmeq-Gzfzwk-Aonjrx Hx Immunizations Up To Date Tetanus Booster (TDap): Less than 5yrs PED Vaccines UTD: No First/Initial COVID19 Vaccinat: NONE Second COVID19 Vaccination Clive: NONE Third COVID19 Vaccination Date: NONE Seasonal Allergies Seasonal Allergies: No Past Medical History Surgeries: Yes Section Respiratory: No Cardiac: No Neurological: No Reproductive Disorders: No Female Reproductive Disorders: Denies Sexually Transmitted Disease: No HIV/AIDS: No UTI-Chronic Gastrointestinal: Yes (DURING ) Gastroesophageal Reflux Musculoskeletal: No Endocrine: No Cancer: No Psychosocial: No Integumentary: No Blood Disorders: No Adverse Reaction/Blood Tranf: No (N/A) Family Medical History Family history: Asthma 09 BROTHER No Family History of: Abdominal aortic aneurysm Hakan's disease Alcoholism Aphasia Cancer Cancer of colon Cataract Chest pain Congenital heart disease Congestive heart failure Cystic fibrosis Dementia Dysphagia Family history: Allergy Family history: Arthritis Family history: Breast disease Family history: Cardiovascular disease Family history: Coronary thrombosis Family history: Diabetes mellitus Family history: Gastrointestinal disease Family history: Glaucoma Family history: Hypertension Family history: Osteoporosis Family history: Thyroid disorder Headache Hearing loss Heart disease Hereditary disease History of - anemia History of - disorder History of - respiratory disease History of drug abuse Human immunodeficiency virus (HIV) seropositivity Hypercholesterolemia Infertile Kidney disease Malignant neoplasm of lung Myocardial infarction Parkinson's disease Prostate cancer Psychotic disorder Seizure disorder Stroke Tuberculosis Visual impairment Heart Disease Physical Exam Vital Signs Vital Signs - First Documented 11/08/21 12:23 Temp 36.1 Pulse 109 Resp 20 B/P (MAP) 118/82 (94) Pulse Ox 97 O2 Delivery Room Air Capillary Refill : Height/Weight/BMI Height: 5'4" Weight: 177lbs. 0.4oz. [id number]; 29.00 BMI Method:Stated General Appearance: WD/WN, no apparent distress HEENT: PERRL/EOMI, normal ENT inspection, TMs normal, pharynx normal Neck: non-tender, full range of motion, supple, normal inspection Respiratory: chest non-tender, lungs clear, normal breath sounds, no respiratory distress, no accessory muscle use Cardiovascular: regular rate, rhythm, no edema, no gallop Gastrointestinal: normal bowel sounds, soft, no organomegaly, no pulsatile mass, tenderness (Suprapubic tenderness. Bilateral lower abdominal tenderness. Normal bowel sounds throughout. No rebound or guarding.) Extremities: normal range of motion, non-tender, normal inspection, no pedal edema Back: normal inspection, no CVA tenderness Neurologic/Psychiatric: deburrer machine II-XII nml as tested, no motor/sensory deficits, alert, normal mood/affect Progress/Results/Core Measures Results/Orders Lab Results Laboratory Tests Test 11/08/21 12:45 11/08/21 13:34 Range/Units White Blood Count 8.6 4.3-11.0 10^3/uL Red Blood Count 4.50 3.80-5.11 10^6/uL Hemoglobin 12.7 11.5-16.0 g/dL Hematocrit 39 35-52 % Mean Corpuscular Volume 86 80-99 fL Mean Corpuscular Hemoglobin 28 25-34 pg Mean Corpuscular Hemoglobin Concent 33 32-36 g/dL Red Cell Distribution Width 12.7 10.0-14.5 % Platelet Count 312 130-400 10^3/uL Mean Platelet Volume 9.7 9.0-12.2 fL Immature Granulocyte % (Auto) 0 % Neutrophils (%) (Auto) 69 42-75 % Lymphocytes (%) (Auto) 18 12-44 % Monocytes (%) (Auto) 10 0-12 % Eosinophils (%) (Auto) 3 0-10 % Basophils (%) (Auto) 0 0-10 % Neutrophils # (Auto) 5.9 1.8-7.8 10^3/uL Lymphocytes # (Auto) 1.5 1.0-4.0 10^3/uL Monocytes # (Auto) 0.9 0.0-1.0 10^3/uL Eosinophils # (Auto) 0.3 0.0-0.3 10^3/uL Basophils # (Auto) 0.0 0.0-0.1 10^3/uL Immature Granulocyte # (Auto) 0.0 0.0-0.1 10^3/uL Sodium Level 140 135-145 MMOL/L Potassium Level 3.7 3.6-5.0 MMOL/L Chloride Level 104 98-107 MMOL/L Carbon Dioxide Level 26 21-32 MMOL/L Anion Gap 10 5-14 MMOL/L Blood Urea Nitrogen 10 7-18 MG/DL Creatinine 0.65 0.60-1.30 MG/DL Estimat Glomerular Filtration Rate 109 BUN/Creatinine Ratio 15 Glucose Level 82 70-105 MG/DL Calcium Level 9.4 8.5-10.1 MG/DL Corrected Calcium 9.4 8.5-10.1 MG/DL Total Bilirubin 0.2 0.1-1.0 MG/DL Aspartate Amino Transf (AST/SGOT) 12 5-34 U/L Alanine Aminotransferase (ALT/SGPT) 9 0-55 U/L Alkaline Phosphatase 68 40-136 U/L Total Protein 7.5 6.4-8.2 GM/DL Albumin 4.0 3.2-4.5 GM/DL Lipase 16 8-78 U/L Urine Color YELLOW Urine Clarity CLEAR Urine pH 6.0 5-9 Urine Specific [place] 1.025 H 1.016-1.022 Urine Protein NEGATIVE NEGATIVE Urine Glucose (UA) NEGATIVE NEGATIVE Urine Ketones 1+ H NEGATIVE Urine Nitrite NEGATIVE NEGATIVE Urine Bilirubin 1+ H NEGATIVE Urine Urobilinogen 0.2 < = 1.0 MG/DL Urine Leukocyte Esterase NEGATIVE NEGATIVE Urine RBC (Auto) TRACE-I H NEGATIVE Urine RBC 0-2 /HPF Urine WBC 0-2 /HPF Urine Squamous Epithelial Cells 2-5 /HPF Urine Crystals NONE /LPF Urine Bacteria MODERATE H /HPF Urine Casts NONE /LPF Urine Mucus MODERATE H /LPF Urine Culture Indicated YES Urine Test NEGATIVE NEGATIVE My Orders Orders - LORRIE KEYS Ua Culture If Indicated (11/08/21 12:03) Hcg,Qualitative Urine (11/08/21 12:03) Cbc With Automated Diff (11/08/21 12:28) Comprehensive Metabolic Panel (11/08/21 12:28) Lipase (11/08/21 12:28) Ketorolac Injection (Toradol Injection) (11/08/21 12:45) Ondansetron Injection (Zofran Injectio (11/08/21 12:45) Urine Culture (11/08/21 13:34) Medications Given in ED Current Medications Medications Dose Ordered Sig/Jenny Route Start Time Stop Time Status Last Admin Dose Admin Ketorolac Tromethamine 30 mg ONCE ONCE IVP 11/08/21 12:45 11/08/21 12:46 DC 11/08/21 12:42 30 MG Ondansetron HCl 4 mg ONCE ONCE IVP 11/08/21 12:45 11/08/21 12:46 DC 11/08/21 12:42 4 MG Vital Signs/I&O 11/08/21 12:23 Temp 36.1 Pulse 109 Resp 20 B/P (MAP) 118/82 (94) Pulse Ox 97 O2 Delivery Room Air Departure Communication (Admissions) Patient with lower abdominal pain and epigastric pain for the past 3 days. Patient no acute distress. Difficulty eating secondary to not feeling well. Patient vomited the first day after eating [employer]. Several episodes of diarrhea. She denies any fever, chest pain, cough, sore throat. Vital signs stable. Lab work otherwise unremarkable. Urinalysis negative for infection or . Patient was given Toradol and Zofran a liter of fluid. Reevaluation without any specific abdominal tenderness. Did discuss with patient that she did have some epigastric and lower abdominal tenderness initially. This improved. Did discuss CT scan rule out any surgical such as appendicitis, cholecystitis. However she states she is pain-free without any specific tenderness on exam. She would rather wait at this time and will return if symptoms progress. This appears to be viral possible food poisoning however treatment will be the same. Discharged with Zofran. Recommend hydration. If worsening pain she needs return back to ED for further evaluation. Impression Primary Impression: Diarrhea Disposition: 01 HOME, SELF-CARE Condition: Stable Departure-Patient Inst. Decision time for Depature: 13:57 Referrals: [facility] [place] NO,LOCAL PHYSICIAN (PCP) Primary Care Physician Patient Instructions: Diarrhea, Adult ED Scripts Ondansetron (Ondansetron Odt) 4 Mg Tab.rapdis 4 MG PO Q4H PRN for NAUSEA-1ST LINE, #10 TAB Prov: LORRIE KEYS 11/08/21 LORRIE KEYS Nov 08, 2021 12:31
[2021-11-08] MEDS ORDERED: KETOROLAC 30 MG/ML VIAL IVP ONE (12:45)
[2021-11-08] MEDS ORDERED: ONDANSETRON 4 MG/2 ML (SDV) Z0FRAN IVP ONE (12:45)
[2021-11-08 12:53] LABS: BASOPHILS % (AUTO) 0 % (0-10); EOSINOPHILS # (AUTO) 0.3 10^3/uL (0.0-0.3); EOSINOPHILS % (AUTO) 3 % (0-10); HEMATOCRIT 39 % (35-52); HEMOGLOBIN 12.7 g/dL (11.5-16.0); LYMPHOCYTES # (AUTO) 1.5 10^3/uL (1.0-4.0); LYMPHOCYTES % (AUTO) 18 % (12-44); MEAN CORPUSCULAR HEMOGLOBIN 28 pg (25-34); MEAN CORPUSCULAR HGB CONC 33 g/dL (32-36); MEAN CORPUSCULAR VOLUME 86 fL (80-99); MEAN PLATELET VOLUME 9.7 fL (9.0-12.2); MONOCYTES # (AUTO) 0.9 10^3/uL (0.0-1.0); MONOCYTES % (AUTO) 10 % (0-12); NEUTROPHILS # (AUTO) 5.9 10^3/uL (1.8-7.8); NEUTROPHILS % (AUTO) 69 % (42-75); PLATELET COUNT 312 10^3/uL (130-400); WHITE BLOOD COUNT 8.6 10^3/uL (4.3-11.0)
[2021-11-08 13:10] LABS: POTASSIUM 3.7 MMOL/L (3.6-5.0)
[2021-11-08 13:12] LABS: CALCIUM 9.4 MG/DL (8.5-10.1)
[2021-11-08 13:13] LABS: TOTAL PROTEIN 7.5 GM/DL (6.4-8.2)
[2021-11-08 13:15] LABS: BILIRUBIN,TOTAL 0.2 MG/DL (0.1-1.0)
[2021-11-08 13:16] LABS: CREATININE SERUM 0.65 MG/DL (0.60-1.30)
[2021-11-08 13:41] LABS: CLARITY,URINE CLEAR; COLOR,URINE YELLOW; GLUCOSE, URINE (UA) NEGATIVE (NEGATIVE); KETONES,URINE 1+ (NEGATIVE); LEUKOCYTE ESTERASE ,URINE NEGATIVE (NEGATIVE); NITRITE,URINE NEGATIVE (NEGATIVE); PROTEIN,URINE NEGATIVE (NEGATIVE)
[2021-11-08 13:50] LABS: BACTERIA,URINE MODERATE /HPF; BILIRUBIN,URINE 1+ (NEGATIVE); RBC,URINE 0-2 /HPF; WBC,URINE 0-2 /HPF
[2021-11-08] MEDS ORDERED: ONDA4TAB11 PO (13:57)
== END 2021-11-08 14:03 | disposition home or self-care (01) ==
LOC: EDUNIT# 11:54 → ER 11:55
DX: R19.7 Diarrhea, unspecified (principal); K21.9 Gastro-esophageal reflux disease without esophagitis; Z79.3 Long term (current) use of hormonal contraceptives; Z79.899 Other long term (current) drug therapy; Z32.02 Encounter for pregnancy test, result negative
CPT/HCPCS: 36415; 80053; 81000; 83690; 84703; 85025; 87088